=== PATIENT | female | born 1960 | race African-American/Black ===

== ENCOUNTER 2020-07-04 16:10 | Emergency (ER) | payer OTHER ==
[2020-07-04] MEDS ORDERED: IOHEXOL 300 MG/ML 100ML BOTTLE IJ ONE (18:40)
[2020-07-04 19:23] LABS: Basophils # (auto) 0 10 ^3/uL (0-0.2); Basophils % (auto) 0.3 % (0.0-2.0); Eosinophils # (auto) 0 10 ^3/uL (0-0.8); Eosinophils % (auto) 0.3 % (0.0-7.0); Hemoglobin 13.4 g/dL (12.2-16.2); Lymphocytes # (auto) 0.7 10 ^3/uL (0.4-5.4); Lymphocytes % (auto) 6.9 % (10.0-50.0); Mean Corpuscular Hemoglobin 29.9 pg (28.0-32.0); Mean Corpuscular Hgb Conc. 32.8 g/dL (32.0-36.0); Mean Corpuscular Volume 91.3 fL (80.0-100.0); Monocytes # (auto) 0.4 10 ^3/uL (0-1.3); Monocytes % (auto) 3.5 % (0.0-12.0); Neutrophils # (auto) 9.1 10 ^3/uL (1.6-8.6); Platelet Count (auto) 309 10^3/uL (140-450); Red Blood Cells 4.49 10^6/uL (4.0-5.20); Red Cell Distribution Width 14.9 % (11.8-14.3); White Blood Cell 10.2 10^3/uL (4.4-10.8)
[2020-07-04 19:31] LABS: Albumin 3.7 g/dL (3.4-5.0); Anion Gap 6 (5-15); Blood Urea Nitrogen 14 mg/dL (7-18); Calcium 8.5 mg/dL (8.5-10.1); Carbon Dioxide 27 mmol/L (21-32); Chloride 106 mmol/L (98-107); Glucose 96 mg/dL (74-106); Potassium 3.7 mmol/L (3.5-5.1); Sodium 139 mmol/L (136-145)
[2020-07-04 19:33] LABS: Alanine Aminotransferase 24 U/L (13-56); Aspartate Aminotransferase 18 U/L (15-37); BUN/Creatinine Ratio 13.7; GFR African American 72 mL/min; GFR Non-African American 59 mL/min
[2020-07-04 19:38] LABS: Alkaline Phosphatase 60 U/L (45-117); Bilirubin, Total 0.4 mg/dL (0.2-1.0); Total Protein 7.8 g/dL (6.4-8.2)
[2020-07-04 19:48] LABS: INR 1.03 (0.9-1.15); Partial Thromboplastin Time 25.6 sec (23.0-31.2)
[2020-07-04 22:39] VITALS: BP 132/87
== END 2020-07-04 22:38 | disposition home or self-care (01) ==
LOC: EDBD 16:10 → ER 16:10
DX: S42.018A Nondisplaced fracture of sternal end of left clavicle, initial encounter for closed fracture (principal); S20.212A Contusion of left front wall of thorax, initial encounter; S60.221A Contusion of right hand, initial encounter; S16.1XXA Strain of muscle, fascia and tendon at neck level, initial encounter; X58.XXXA Exposure to other specified factors, initial encounter; Y93.89 Activity, other specified; Y92.89 Other specified places as the place of occurrence of the external cause; Y99.8 Other external cause status
CPT/HCPCS: 36415; 71250; 71260; 72125; 73130; 73562; 80053; 83880; 84443; 84484; 85025; 85379; 85610; 85730; 99285; Q9967; 93005